=== PATIENT | male | born 1990 | race Caucasian/White ===

== ENCOUNTER 2018-10-13 19:37 | Emergency (ER) | payer MEDICAID ==
[~2018-10-13] VITALS: Ht 177.8 cm; Wt 81.6 kg
[2018-10-13 19:50] VITALS: Ht 177.8 cm; Wt 81.6 kg
[2018-10-13 20:20] VITALS: BP 153/103
[2018-10-13 20:50] VITALS: BP 109/67
[2018-10-13 21:01] LABS: AMPHETAMINE QUAL UR NONE DETECTED (See below)
[2018-10-13 21:22] LABS: PLATELET COUNT 188 x10^3mcL (130-400); RED CELL DISTRIBUTION WIDTH 13.7 % (11.5-14.5)
[2018-10-13 21:24] LABS: CALCIUM 8.1 mg/dL (8.5-10.1); CARBON DIOXIDE 19.4 mmol/L (21-32); CHLORIDE SERUM 101 mmol/L (98-107); GFR1 27 mL/min; GLUCOSE SERUM 93 mg/dL (74-106); POTASSIUM SERUM 4.9 mmol/L (3.5-5.1); SODIUM SERUM 137 mmol/L (136-145)
[2018-10-13 21:35] VITALS: BP 98/73
[2018-10-13 21:36] LABS: ALKALINE PHOSPHATASE 127 U/L (46-116); ALT/SGPT 373 U/L (16-63); BILIRUBIN TOTAL 0.3 mg/dL (0.20-1.00)
[2018-10-13 21:38] LABS: TOTAL PROTEIN, SERUM 8.7 g/dL (6.4-8.2)
[2018-10-13 21:51] LABS: BAND NEUTROPHIL 0 % (0-10); BASOPHIL 0 % (0-2); MONOCYTE 3 % (0-7); PLATELET MORPHOLOGY PLATELETS NORMAL; SEGMENTED NEUTROPHILS 90 % (37-75); rbc morphology (normal/abnorm) NORMAL (NORMAL)
[2018-10-13 22:05] LABS: AST/SGOT 2098 U/L (15-37)
[2018-10-13 22:40] LABS: FREE T4 1.03 ng/dL (0.76-1.46); LIPASE 153 IU/L (73-393)
[2018-10-13 23:40] VITALS: BP 109/62
[2018-10-14 00:50] VITALS: BP 111/60
[2018-10-14 02:43] LABS: UA SPECIFIC GRAVITY 1.015 (1.005-1.035); microscopic required? YES; urine erythrocyte 3+ (NEGATIVE)
[2018-10-14 03:20] VITALS: BP 130/63
[2018-10-14 04:55] VITALS: BP 107/50
[2018-10-14 07:34] VITALS: BP 114/54
== END 2018-10-14 07:34 | disposition short-term general hospital (02) ==
LOC: ED 19:37
PROVIDERS: Emergency Medicine
DX: G93.41 Metabolic encephalopathy (principal); J96.00 Acute respiratory failure, unspecified whether with hypoxia or hypercapnia; N17.9 Acute kidney failure, unspecified
CPT/HCPCS: 36600; 82962; 83880; 84439; C9113; G0480; J1644; J2060; J2543; J2704; J2765; J3010; J3370; J3490; J7030; J7050; J7120